=== PATIENT | male | born 1950 | race Caucasian/White ===

== ENCOUNTER → 2017-06-16 | Outpatient (CLI) | payer OTHER ==
[~2017-06-16] MED LIST: BUPROPION XL300 MG PO; LEVAQUIN250 MG PO; LISINOPRIL10 MG PO; SIMVASTATIN40 MG PO; TRADJENTA5 MG PO; VICODIN PO; WELCHOL625 MG PO; WELLBUTRIN SR150 MG PO; ZESTRIL20 MG PO
--- NOTE | 2017-06-16 13:54 | Diagnostic Imaging Report ---
PROCEDURE:ABDOMINAL ULTRASOUND COMPARISON:CT of the abdomen and pelvis from 01/07/2014. Renal ultrasound from 01/06/2014. INDICATIONS:TYPE 2 DIABETES W/ HYPERGLYCEMIA TECHNIQUE: Hollins-scale and color sonographic images were obtained of the abdomen in transverse and sagittal planes. FINDINGS: Liver: 14.3 cm in length in right midclavicular line. Normal echogenicity. No masses. Main portal vein: 0.9 cm in caliber, hepatopetal flow Gallbladder: There is a small amount of sludge in the gallbladder, but no stones, wall, thickening, or pericholecystic fluid. Areas of reverberation artifact in the gallbladder wall suggests adenomyomatosis. Common Bile Duct: 0.2 cm in caliber. Sonographic Denton's sign: Negative Right kidney: 10.2 cm in length Left kidney: 12.9 cm in length. 3.3 x 3.2 x 2.4 cm cystic lesion in the right upper pole is incompletely evaluated. Spleen: 10.5 cm in length. Pancreas: Pancreas is not well-visualized due to overlying bowel gas. Inferior vena cava: Nonvisualized due to overlying bowel gas. Aorta: The aorta is incompletely evaluated due to overlying bowel gas. Ascites: None CONCLUSION: The pancreas is not well-visualized due to overlying bowel gas. The appearance of the gallbladder wall suggests adenomyomatosis. A previously noted cystic lesion in the upper pole of the right kidney measures at least 3.3 cm and is incompletely evaluated. Dictated by: Noble Farooq M.D. on 06/16/2017 at 13:55 Electronically approved by: Noble Farooq M.D. on 06/16/2017 at 13:55
== END ==
LOC: US 11:59
PROVIDERS: ATTEND Internal Medicine
DX: E11.65 Type 2 diabetes mellitus with hyperglycemia (principal)
CPT/HCPCS: 76700